=== PATIENT | female | born 1970 | race Caucasian/White ===

== ENCOUNTER 2021-10-21 14:07 | Emergency (ER) | payer OTHER ==
[~2021-10-21 14:07] MED LIST: CLEOCIN150 MG PO; NORCO 5-325 TA1 EACH PO; VOLTAREN **OUT75 MG PO
[2021-10-21] MEDS ORDERED: NAPROXEN500 MG PO (14:59)
== END 2021-10-21 15:20 | disposition home or self-care (01) ==
LOC: FER 14:07
DX: S46.912A Strain of unspecified muscle, fascia and tendon at shoulder and upper arm level, left arm, initial encounter (principal); Z88.5 Allergy status to narcotic agent; W18.09XA Striking against other object with subsequent fall, initial encounter; Y92.009 Unspecified place in unspecified non-institutional (private) residence as the place of occurrence of the external cause
CPT/HCPCS: 73030